=== PATIENT | male | born 2000 | race Two or more races ===

== ENCOUNTER 2020-08-31 00:13 | Emergency (ER) | payer MEDICAID ==
[~2020-08-31] VITALS: Ht 167.6 cm; Wt 63.5 kg
[2020-08-31 00:13] VITALS: BP 116/67
--- NOTE | 2020-08-31 01:09 | NUR ---
PT NOT IN ROOM FOR DISCHARGE. PT LEFT WITHOUT ACI.
== END 2020-08-31 01:11 | disposition home or self-care (01) ==
LOC: ER 00:16
DX: F11.23 Opioid dependence with withdrawal (principal)